=== PATIENT | female | born 1960 | race American Indian/Alaskan Native ===

== ENCOUNTER 2016-04-05 10:55 | Emergency (ER) | payer SELFPAY ==
[2016-04-05 12:35] VITALS: BP 143/57
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
== END 2016-04-05 15:37 | disposition home or self-care (01) ==
LOC: ED 10:55
DX: J01.90 Acute sinusitis, unspecified (principal); B96.89 Other specified bacterial agents as the cause of diseases classified elsewhere; R51 Headache; I10 Essential (primary) hypertension; K21.9 Gastro-esophageal reflux disease without esophagitis; M19.90 Unspecified osteoarthritis, unspecified site; Z87.891 Personal history of nicotine dependence
CPT/HCPCS: 99282

== ENCOUNTER 2016-06-22 12:21 | Emergency (ER) | payer SELFPAY ==
[2016-06-22] MEDS ORDERED: XYLOCAINE 1% MPF 5 mL INFILTRATI ONE (14:51)
[2016-06-22] MEDS ORDERED: MOTRIN PO ONE (14:51)
[2016-06-22] MEDS ORDERED: BOOSTRIX IM ONE (14:51)
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
[2016-06-22 15:30] VITALS: BP 121/66
== END 2016-06-22 15:30 | disposition home or self-care (01) ==
LOC: ED 12:21
DX: S61.211A Laceration without foreign body of left index finger without damage to nail, initial encounter (principal); S61.213A Laceration without foreign body of left middle finger without damage to nail, initial encounter; I10 Essential (primary) hypertension; K21.9 Gastro-esophageal reflux disease without esophagitis; G43.909 Migraine, unspecified, not intractable, without status migrainosus; W26.0XXA Contact with knife, initial encounter; Y93.9 Activity, unspecified; Y92.9 Unspecified place or not applicable; Y99.9 Unspecified external cause status
CPT/HCPCS: 90471; 90715; 99282